=== PATIENT | female | born 1950 | race African-American/Black ===

== ENCOUNTER → 2018-02-15 18:28 | Outpatient (CLI) | payer BC ==
[2009-07-30 07:37] VITALS: BMI 32.6
== END | disposition home or self-care (01) ==
LOC: D.MAMMO 01-24 14:30
DX: Z12.31 Encounter for screening mammogram for malignant neoplasm of breast (principal)

== ENCOUNTER 2020-06-10 17:45 | Outpatient (CLI) | payer OTHER ==
[2009-07-30 07:37] VITALS: BMI 32.6
== END 2020-06-10 23:59 | disposition home or self-care (01) ==
LOC: D.MAMMO 17:45
PROVIDERS: ATTEND Family Medicine
DX: Z12.31 Encounter for screening mammogram for malignant neoplasm of breast (principal)